=== PATIENT | male | born 1945 | race Caucasian/White ===

== ENCOUNTER 2020-03-07 11:17 | Inpatient (IN) | payer MEDICARE, OTHER ==
[~2020-03-07] VITALS: Ht 170.2 cm; Wt 59.4 kg
--- NOTE | 2020-03-07 11:30 | NUR ---
patient is awake and alert in no distress. suicide precautions inititated. patient belongings at nurses station.
--- NOTE | 2020-03-07 11:47 | NUR ---
MRSA swap collected and sent to lab. EKG done, results given to .
[2020-03-07 12:07] LABS: BASOPHILS % (AUTO) 0.4 % (0.0-2.0); EOSINOPHILS % (AUTO) 0.7 % (0.0-7.0); HEMATOCRIT 43.5 % (36.7-47.1); HEMOGLOBIN 14.6 g/dL (12.5-16.3); LYMPHOCYTES # (AUTO) 0.8 K/uL (20.0-40.0); LYMPHOCYTES % (AUTO) 11.4 % (20.5-51.5); MEAN CORPUSCULAR HEMOGLOBIN 33.7 uug (23.8-33.4); MEAN CORPUSCULAR HGB CONC 34 g/dL (32.5-36.3); MEAN CORPUSCULAR VOLUME 100.5 fL (73.0-96.2); MONOCYTES # (AUTO) 0.6 K/uL (2.0-10.0); MONOCYTES % (AUTO) 8.9 % (0.0-11.0); NEUTROPHILS # (AUTO) 5.2 K/uL (1.8-8.9); NEUTROPHILS % (AUTO) 78.6 % (38.5-71.5); PLATELET COUNT (AUTO) 135 K/uL (152-348); RED BLOOD CELL COUNT(AUTO) 4.33 MIL/uL (4.06-5.63); WHITE BLOOD COUNT (AUTO) 6.7 K/uL (3.6-10.2)
[2020-03-07 12:22] LABS: CARBON DIOXIDE 27 mmol/L (21-32); CHLORIDE 104 mmol/L (98-107); CREATININE 1.1 mg/dL (0.6-1.3); GLUCOSE 104 mg/dL (74-106); POTASSIUM 4.1 mmol/L (3.5-5.1); UREA NITROGEN, BLOOD 19 mg/dL (7-18)
[2020-03-07 12:29] LABS: ALANINE AMINOTRANSFERASE 35 U/L (16-63); ALKALINE PHOSPHATASE 92 U/L (50-136); ASPARTATE AMINOTRANSFERASE 46 U/L (15-37); BILIRUBIN,DIRECT 0.4 mg/dL (0.0-0.2); BILIRUBIN,TOTAL 2.5 mg/dL (0.2-1.0); TOTAL PROTEIN, SERUM 6.9 g/dL (6.4-8.2)
[2020-03-07 12:36] LABS: ETHANOL < 3 MG/DL (0-0)
--- NOTE | 2020-03-07 12:40 | NUR ---
Report given to Andre in [facility]. patient is aware of pending admission.
[2020-03-07 12:45] VITALS: BP 143/99
--- NOTE | 2020-03-07 12:45 | NUR ---
Admitted a 74 yrs old male pt with DX psychosis,patient was place on 5150 for DTS due to he stated that he was going to buy a 280 to shoot himself.During face to face assessment, patient is cooperative with staff,mood is depressed and affect is anxious, poor grooming, unkempt appearance,stated "last drink was last Friday..", "Yes, It is true what the police is saying, but I do not feel suicidal now." low energy level, poor eyes contact, stated "I am [place] , so I have PTSD...", unable to formulate a viable plan for self care.
[2020-03-07] MEDS ORDERED: MAG HYDROX/AL HYDROX/SIMETH 30 ML LIQUID UDC PO PRN (13:15)
[2020-03-07] MEDS ORDERED: ACETAMINOPHEN 325 MG TABLET PO PRN (13:15)
[2020-03-07] MEDS ORDERED: LORAZEPAM 1 MG TABLET PO PRN (13:15)
[2020-03-07] MEDS ORDERED: MAGNESIUM HYDROXIDE 30 ML LIQUID UDC PO PRN (13:15)
[2020-03-07 15:04] VITALS: BP 133/82
[2020-03-07 20:08] VITALS: BP 128/93
--- NOTE | 2020-03-08 00:48 | NUR ---
GPS: RECEIVED PT LYING IN BED, A/OX3. PT IS NEW ADMIT WITH SI IDEATION ON 5150 WITH INTENT TO CAUSE HARM TO SELF. PT WAS INTERVIEWED AND DENIED SI. PT SAID I WAS UNDER THE INFLUENCE OF ALCOHOL THAT IS WHY I SAID THAT. PT WHILE IN ROOM WAS BECOMING IRRITATED DUE TO ROOMMATE YELLING AND SCREAMING. PT REQUESTED ANOTHER ROOM BECAUSE HE FEELS HE WILL NOT REST ENOUGH HERE. ROOM CHANGED AND PT REQUESTED FOR SOMETHING TO HELP HIM RELAX. PRN ATIVAN 1MG GIVEN AND NOTED SOME EFFECT PT AMBULATORY AND STABLE GAIT, SAFETY MEASURES IN PLACE. WILL CONTINUE TO MONITOR PT AND Q/15MINS HEAD CHECK ONGOING.
[2020-03-08 07:30] VITALS: BP 115/85
[2020-03-08 07:55] LABS: BASOPHILS % (AUTO) 0.6 % (0.0-2.0); EOSINOPHILS # (AUTO) 0.1 K/uL (0.0-0.7); EOSINOPHILS % (AUTO) 0.9 % (0.0-7.0); HEMATOCRIT 41.9 % (36.7-47.1); HEMOGLOBIN 14.3 g/dL (12.5-16.3); LYMPHOCYTES # (AUTO) 1.2 K/uL (20.0-40.0); LYMPHOCYTES % (AUTO) 20.2 % (20.5-51.5); MEAN CORPUSCULAR HEMOGLOBIN 34.5 uug (23.8-33.4); MEAN CORPUSCULAR HGB CONC 34 g/dL (32.5-36.3); MONOCYTES # (AUTO) 0.6 K/uL (2.0-10.0); MONOCYTES % (AUTO) 10.2 % (0.0-11.0); NEUTROPHILS # (AUTO) 4.2 K/uL (1.8-8.9); NEUTROPHILS % (AUTO) 68.1 % (38.5-71.5); PLATELET COUNT (AUTO) 144 K/uL (152-348); RED BLOOD CELL COUNT(AUTO) 4.15 MIL/uL (4.06-5.63); WHITE BLOOD COUNT (AUTO) 6.2 K/uL (3.6-10.2)
[2020-03-08 08:16] LABS: THYROID STIMULATING HORMONE 3.204 mIU/mL (0.358-3.740)
[2020-03-08 08:38] LABS: CREATININE 1.2 mg/dL (0.6-1.3); MAGNESIUM 1.8 mg/dL (1.8-2.4); PHOSPHOROUS 3.4 mg/dL (2.5-4.9); POTASSIUM 3.8 mmol/L (3.5-5.1); TOTAL PROTEIN, SERUM 6.8 g/dL (6.4-8.2)
[2020-03-08 09:48] LABS: LYMPHOCYTES % (MANUAL) 16 % (20-40); MONOCYTES % (MANUAL) 4 % (2-10); NEUTROPHILS % (MANUAL) 80 % (42-75)
[2020-03-08] MEDS: NICOTINE 14 MG/24HR PATCH TD SCH (10:02)
[2020-03-08] MEDS: ESCITALOPRAM OXALATE 10 MG TABLET PO SCH (10:02)
--- NOTE | 2020-03-08 11:38 | NUR ---
VIC Family Contact: VIC spoke with patient's niece, Maki Pablo ([phone]) and collected collateral information and discussed discharge and treatment plan. Maki stated that the patient abuses alcohol and gets aggressive with family. Maki stated they are fearful when patient return home due to aggressive behaviors. Maki stated that the patient was living with his sister, Carlee Pablo ([phone]) for over one year, however she stated that he began to drink alcohol for the past two weeks, and they had to "kick him out". Maki stated there is no restraining order towards the patient that he cannot return home. Maki mentioned that Carlee will not stop the patient from returning home upon discharge, however, they would prefer otherwise. Maki also mentioned they spoke with the police who stated that since the pt was residing with the sister for over 1 year, they would need to serve him an official eviction notice should they not want him to return. Addendum: 03/08/20 at 1145 by MARLON ROMERO Maki stated that they would provide Lyft transportation for the patient upon discharge. Maki provide this contract technical writer with the [employer] information the patent was residing at: [facility] [address] [place] [address] ([phone]).
--- NOTE | 2020-03-08 11:38 | NUR ---
VIC Initial Discharge Note: Pt is currently living in a Motel In [place] for the past two weeks, unable to provide information. Prior, patient was living with his sister for over 1 year, [id number] [place] [address] [place] [address] Carlee Pablo ([phone]). Per patient, he would like to be discharged back to a Motel in [place], [place]. VIC will continue to work with patient, family, and MD to ensure a safe and proper discharge plan.
--- NOTE | 2020-03-08 13:17 | NUR ---
Brief Substance Abuse Intervention: Patient was provided with a brief substance abuse intervention and referred to the following substance abuse programs: [facility] ([phone]); [facility] [address] [place] [address] ([phone]); [facility] [address] [facility] [address] ([phone]); [facility] ([phone]); [facility] ([phone]); [facility] ([phone]); [facility] ([phone]).
[2020-03-08 16:00] VITALS: BP 115/79
--- NOTE | 2020-03-08 20:30 | NUR ---
Received patient resting in bed, easily to arouse. No distress noted. Denies any SI/Hallucinations. Stated he is just feeling sluggish because not much to do, but he says he was eating better today. Patient is calm and cooperative.
[2020-03-08] MEDS: ATORVASTATIN 10 MG TABLET PO SCH (20:37)
[2020-03-08 20:41] VITALS: BP 138/84
[2020-03-08] MEDS: TEMAZEPAM 7.5 MG CAPSULE PO PRN (23:25)
[2020-03-09 07:57] VITALS: BP 119/87
[2020-03-09] MEDS: ESCITALOPRAM OXALATE 10 MG TABLET PO SCH (08:49)
[2020-03-09] MEDS: NICOTINE 14 MG/24HR PATCH TD SCH (08:49)
[2020-03-09] MEDS: MULTIVITAMINS,THERAPEUTIC TABLET PO SCH (10:38)
[2020-03-09] MEDS: FOLIC ACID 1 MG TABLET PO SCH (10:39)
[2020-03-09] MEDS: THIAMINE HCL 100 MG TABLET PO SCH (10:48)
[2020-03-09 16:06] VITALS: BP 124/85
[2020-03-09 20:00] VITALS: BP 153/93
--- NOTE | 2020-03-09 20:00 | NUR ---
received patient in his room in bed. he is noted awake A/O x3. able to ambulate with steady gait. he is calm and pleasant upon approached. Pt is a [place] and he suffers from PTSD and loud noises makes him upset. patient is able to verbalized feelings. Mood is low, affect is blunted. Patient denies SI. upon interview, patient stated that he was "drunk" when he verbalized SI; however, he does not feel suicidal. Patient able to CFS. Pt is reassured for his safety. Safety and fall precaution in place. will continue to monitor.
[2020-03-09] MEDS: ATORVASTATIN 10 MG TABLET PO SCH (20:31)
[2020-03-09] MEDS: TEMAZEPAM 7.5 MG CAPSULE PO PRN (22:13)
[2020-03-10 07:30] VITALS: BP 124/87
[2020-03-10] MEDS: THIAMINE HCL 100 MG TABLET PO SCH (08:28)
[2020-03-10] MEDS: MULTIVITAMINS,THERAPEUTIC TABLET PO SCH (08:28)
[2020-03-10] MEDS: ESCITALOPRAM OXALATE 10 MG TABLET PO SCH (08:28)
[2020-03-10] MEDS: FOLIC ACID 1 MG TABLET PO SCH (08:28)
[2020-03-10] MEDS: NICOTINE 14 MG/24HR PATCH TD SCH (08:28)
[2020-03-10] MEDS: NEO/POLYMYX B/DEXAM OPHT DROP 5 ML BOTTLE EACHEYE SCH ×2 (11:33→17:08)
[2020-03-10 15:08] VITALS: BP 112/75
[2020-03-10] MEDS: ATORVASTATIN 10 MG TABLET PO SCH (20:14)
[2020-03-10 20:35] VITALS: BP 112/74
[2020-03-11] MEDS: NEO/POLYMYX B/DEXAM OPHT DROP 5 ML BOTTLE EACHEYE SCH ×5 (00:03→23:26)
[2020-03-11] MEDS: TEMAZEPAM 7.5 MG CAPSULE PO PRN (00:05)
--- NOTE | 2020-03-11 06:52 | NUR ---
PATIENT SLEPT FOR APPROX 5.45 HRS THOUGHT THE NIGHT. HE IS NOTED A/O X 3, HE GETS IRRITABLE AT TIME BUT REDIRECTABLE. PT IS COMPLIANT WITH MEDICATION REGIMENT. WILL CONTINUE TO MONITOR.
[2020-03-11 07:30] VITALS: BP 95/71
[2020-03-11] MEDS: FOLIC ACID 1 MG TABLET PO SCH (08:46)
[2020-03-11] MEDS: ESCITALOPRAM OXALATE 10 MG TABLET PO SCH (08:47)
[2020-03-11] MEDS: MULTIVITAMINS,THERAPEUTIC TABLET PO SCH (08:47)
[2020-03-11] MEDS: NICOTINE 14 MG/24HR PATCH TD SCH (08:48)
[2020-03-11] MEDS: THIAMINE HCL 100 MG TABLET PO SCH (08:48)
[2020-03-11 16:00] VITALS: BP 120/85
[2020-03-11 20:00] VITALS: BP 131/86
[2020-03-11] MEDS: ATORVASTATIN 10 MG TABLET PO SCH (20:19)
--- NOTE | 2020-03-11 23:23 | NUR ---
RECEIVED PATIENT IN BED. APPEARED IRRITABLE. MOOD WAS LOW AND AFFECT WAS BLUNTED.WAS HOWEVER COOPERATIVE WITH STAFF FOR HIS CARE AND MEDICATIONS. DENIES SI.VISUAL CHECKS MADE ON HIM FOR SAFETY. WILL CONTINUE TO MONITOR.
[2020-03-12] MEDS: NEO/POLYMYX B/DEXAM OPHT DROP 5 ML BOTTLE EACHEYE SCH ×4 (06:14→23:38)
--- NOTE | 2020-03-12 06:25 | NUR ---
SLEPT FOR APPROX. 8:30 HOURS. UP THIS MORNING AND HAS TAKEN A SHOWER.
[2020-03-12 07:30] VITALS: BP 129/90
[2020-03-12] MEDS: FOLIC ACID 1 MG TABLET PO SCH (09:20)
[2020-03-12] MEDS: ESCITALOPRAM OXALATE 10 MG TABLET PO SCH (09:20)
[2020-03-12] MEDS: NICOTINE 14 MG/24HR PATCH TD SCH (09:20)
[2020-03-12] MEDS: THIAMINE HCL 100 MG TABLET PO SCH (09:20)
[2020-03-12] MEDS: MULTIVITAMINS,THERAPEUTIC TABLET PO SCH (09:20)
[2020-03-12 15:13] VITALS: BP 120/83
[2020-03-12] MEDS: ATORVASTATIN 10 MG TABLET PO SCH (20:33)
[2020-03-12 21:06] VITALS: BP 121/87
--- NOTE | 2020-03-13 01:27 | NUR ---
RECEIVED PATIENT IN BED. MOOD LOW AND AFFECT WAS BLUNTED.HOWEVER COOPERATIVE WITH STAFF FOR HIS CARE AND MEDICATIONS. DENIES SI.VISUAL CHECKS MADE ON HIM FOR SAFETY. WILL CONTINUE TO MONITOR.
[2020-03-13] MEDS: NEO/POLYMYX B/DEXAM OPHT DROP 5 ML BOTTLE EACHEYE SCH ×4 (06:19→23:08)
--- NOTE | 2020-03-13 06:45 | NUR ---
SLEPT APPROX. 8;15HOURS
[2020-03-13 08:00] VITALS: BP 122/81
[2020-03-13] MEDS: NICOTINE 14 MG/24HR PATCH TD SCH (09:29)
[2020-03-13] MEDS: MULTIVITAMINS,THERAPEUTIC TABLET PO SCH (09:29)
[2020-03-13] MEDS: FOLIC ACID 1 MG TABLET PO SCH (09:29)
[2020-03-13] MEDS: THIAMINE HCL 100 MG TABLET PO SCH (09:29)
[2020-03-13] MEDS: ESCITALOPRAM OXALATE 10 MG TABLET PO SCH (10:29)
--- NOTE | 2020-03-13 15:51 | NUR ---
VIC Individual Therapy Note: VIC met with patient to discuss discharge planning. Patient stated that he wants to be discharged back to his sister's house where he has been living for over [address] [place] [address]. Patient stated that he can take a Taxi to the [address] [place] and from there one take a bus. This telegraphic typewriter operator offered the patient either a Bus Pass.
[2020-03-13 16:30] VITALS: BP 113/80
[2020-03-13] MEDS: ATORVASTATIN 10 MG TABLET PO SCH (20:16)
[2020-03-13 20:42] VITALS: BP 125/80
[2020-03-14] MEDS: NEO/POLYMYX B/DEXAM OPHT DROP 5 ML BOTTLE EACHEYE SCH ×4 (05:47→23:27)
--- NOTE | 2020-03-14 06:01 | NUR ---
GPS; PATIENT SLEPT FOR APPROX 6.30 HRS THOUGHT THE NIGHT. A/O X 3, GETS IRRITABLE AT TIME . COMPLIANT WITH AM MEDICATION . NO AGITATION NOTED. TOOK SHOWERED THIS MORNING. WILL CONTINUE TO MONITOR.
[2020-03-14 07:30] VITALS: BP 125/85
[2020-03-14] MEDS ORDERED: ESCITALOPRAM OXALATE 10 MG TABLET PO SCH (09:00)
[2020-03-14] MEDS: ESCITALOPRAM OXALATE 10 MG TABLET PO SCH (09:36)
[2020-03-14] MEDS: NICOTINE 14 MG/24HR PATCH TD SCH (09:37)
[2020-03-14] MEDS: MULTIVITAMINS,THERAPEUTIC TABLET PO SCH (09:37)
[2020-03-14] MEDS: THIAMINE HCL 100 MG TABLET PO SCH (09:37)
[2020-03-14] MEDS: FOLIC ACID 1 MG TABLET PO SCH (09:37)
[2020-03-14 15:49] VITALS: BP 126/82
--- NOTE | 2020-03-14 18:16 | NUR ---
patient remain calm, no distress, complinat with meds
--- NOTE | 2020-03-14 19:45 | NUR ---
PATIENT STAYED ON THE TV ROOM, REMAINS CALMS AND COOPERATIVE WITH MEDICATIONS AND CARE, CONT TO MONITOR.
[2020-03-14 20:22] VITALS: BP 135/81
[2020-03-14] MEDS: ATORVASTATIN 10 MG TABLET PO SCH (20:24)
[2020-03-15] MEDS: NEO/POLYMYX B/DEXAM OPHT DROP 5 ML BOTTLE EACHEYE SCH ×3 (05:42→17:03)
--- NOTE | 2020-03-15 05:57 | NUR ---
PATIENT SLEPT MOST OF THE NIGHT, NO COMPLAIN OF PAIN. PATIENT CALM ALL NIGHT, CONT TO MONITOR.
[2020-03-15 07:30] VITALS: BP 133/84
[2020-03-15] MEDS: ESCITALOPRAM OXALATE 10 MG TABLET PO SCH (08:20)
[2020-03-15] MEDS: MULTIVITAMINS,THERAPEUTIC TABLET PO SCH (08:20)
[2020-03-15] MEDS: THIAMINE HCL 100 MG TABLET PO SCH (08:20)
[2020-03-15] MEDS: FOLIC ACID 1 MG TABLET PO SCH (08:20)
[2020-03-15] MEDS: NICOTINE 14 MG/24HR PATCH TD SCH (08:21)
[2020-03-15 16:00] VITALS: BP 126/80
[2020-03-15 20:16] VITALS: BP 111/77
[2020-03-15] MEDS: ATORVASTATIN 10 MG TABLET PO SCH (20:36)
[2020-03-16] MEDS: NEO/POLYMYX B/DEXAM OPHT DROP 5 ML BOTTLE EACHEYE SCH ×5 (01:59→23:57)
--- NOTE | 2020-03-16 04:55 | NUR ---
PATIENT ASLEEP BUT EASILY AROUSABLE, PATIENT CALM NO BEHAVIORAL PROBLEM NOTED, CONT TO MONITOR.
[2020-03-16 07:30] VITALS: BP 116/80
[2020-03-16] MEDS: FOLIC ACID 1 MG TABLET PO SCH (09:28)
[2020-03-16] MEDS: THIAMINE HCL 100 MG TABLET PO SCH (09:28)
[2020-03-16] MEDS: MULTIVITAMINS,THERAPEUTIC TABLET PO SCH (09:28)
[2020-03-16] MEDS: ESCITALOPRAM OXALATE 10 MG TABLET PO SCH (09:28)
[2020-03-16] MEDS: NICOTINE 14 MG/24HR PATCH TD SCH (09:28)
--- NOTE | 2020-03-16 14:00 | NUR ---
Group Note: VIC encouraged the pt to attend group therapy on 03/16/20 at 1330 but the pt stated that he wanted to remain in his room as he is aware that he is being discharged the following day. VIC conducted an individual with the pt at 1400 and discussed the pts discharge. Pt stated that he is going to take a taxi to his sister's house and provided the address. SW stated that she will call the family to confirm this discharge plan.
--- NOTE | 2020-03-16 14:10 | NUR ---
Family Contact: SW called the pts sister, Carlee Pablo ([phone]), and left a voicemail stating that the pt is going to be discharged the following day and that the SW would need to discuss the plan.
--- NOTE | 2020-03-16 14:14 | NUR ---
Family Contact: SW spoke with patient's niece, Maki Pablo ([phone]), who stated that the pt cannot return to his sister's house due to the behavior that he exhibited before his admission and due to his drinking, Pts niece recommended that the pt be discharged back to the hotel that he was in prior to his admission.
--- NOTE | 2020-03-16 14:27 | NUR ---
Individual Intervention: SW spoke to the pt in the activities room and informed him that he cannot go back to his sister's home because they do not want him there. Pt stated that he will stop at their house to grab his belongings and then he will go to a hotel in [place]. SW stated that she will assist in finding a hotel.
--- NOTE | 2020-03-16 14:37 | NUR ---
Family Contact: Pt's niece, Maki Pablo ([phone]), called the SW back and stated that they will be at the house when the pt arrives for his belongings to mediate the situation.
[2020-03-16 16:00] VITALS: BP 125/78
[2020-03-16 20:27] VITALS: BP 127/80
[2020-03-16] MEDS: ATORVASTATIN 10 MG TABLET PO SCH (20:56)
[2020-03-17] MEDS: NEO/POLYMYX B/DEXAM OPHT DROP 5 ML BOTTLE EACHEYE SCH (05:35)
--- NOTE | 2020-03-17 06:25 | NUR ---
PT SLEPT 8 HOURS. PT IN NO ACUTE DISTRESS. PRESCRIBED MEDICATION GIVEN AND PT TOLERATED IT WELL. PT COOPERATIVE WITH CARE. PT KNOWS HE WILL BE DISCHARGED TODAY.SAFETY AND COMFORT PROVIDED. ALL NEEDS ARE MET. WILL ENDORSE TO INCOMING NURSE FOR CONTINUITY OF CARE.
[2020-03-17 07:30] VITALS: BP 118/75
[2020-03-17] MEDS: THIAMINE HCL 100 MG TABLET PO SCH (08:25)
[2020-03-17] MEDS: MULTIVITAMINS,THERAPEUTIC TABLET PO SCH (08:25)
[2020-03-17] MEDS: ESCITALOPRAM OXALATE 10 MG TABLET PO SCH (08:25)
[2020-03-17] MEDS: FOLIC ACID 1 MG TABLET PO SCH (08:26)
[2020-03-17] MEDS: NICOTINE 14 MG/24HR PATCH TD SCH (08:26)
--- NOTE | 2020-03-17 09:58 | NUR ---
G[ps/Pilot Supervisor- Patient had been compliant with his routine medications , aware of his discharge plan today. reviewed all medications/prescriptions, diet, safety, skin care ,follow up with his Primary Medical Doctor as recommeded. Safety reviewed and emphasized., patient verbalized understanding.
--- NOTE | 2020-03-17 11:53 | NUR ---
Gps/Store Sales Leader- Spoked to patient;stacy Fisher ). reviewed plan, verbalized understanding. Patient will be going to be discharged to his sister's house, patient to adhere to rules ,given chance.
--- NOTE | 2020-03-17 12:48 | NUR ---
Gps/Plastic Press Operator- Reviewed discharged instructions verbalized understanding. All belongings given back to patient. Emphasized the need to car pick up driver hi prescriptions at [facility] [phone], [place] claimed [place], informed he did'nt come in with the card.. Tried to call Unit taxi- to transport patient to his Sisters' home.
--- NOTE | 2020-03-17 13:35 | NUR ---
Gps/Food Vendor- Discharged to home via taxi, in good spirit, all belongings returned back to patient, no complaints noted.
--- NOTE | 2020-03-17 14:00 | NUR ---
Discharge Note: Pt was discharged to his sisters [place] [address] [place] [address]. Pt called his own taxi with this number ([phone]) at 12:30pm. VIC spoke to the pts niece, Maki Pablo ([phone]), about the discharge and she stated that she and her will be there when the pt arrives to ensure pts safety. Pt stated that he go to a hotel by the end of the night if he does not want to stay at this sister's house. SW provided the pt with homeless resources such as shelters, food storm, hot meals, showers, health clinics, mental health clinics and substance abuse referrals. Upon discharge, the pt appeared to be in a euthymic mood and presented with a calm affect. Pt appeared to be ambulatory with a steady gait. Pt appeared to be well groomed and appeared to be appropriately dressed. Pt denied both suicidal and homicidal ideation as well as auditory and visual hallucinations. Pt will be under the care of psychiatrist, Dr. Barton, located at [address] [place] [address]; and metal furniture assembler, [facility], located at [address] [place] [address]; ; fax: . Pt signed the Homeless Waiver.
== END 2020-03-17 13:40 | disposition home or self-care (01) | DRG 885 ==
LOC: ER 11:17 → GPS 12:33
PROVIDERS: ADMIT Psychiatry & Neurology Psychiatry; ATTEND Internal Medicine
DX: F33.2 Major depressive disorder, recurrent severe without psychotic features (principal); F10.229 Alcohol dependence with intoxication, unspecified; R45.851 Suicidal ideations; F10.239 Alcohol dependence with withdrawal, unspecified; F23 Brief psychotic disorder; Y90.0 Blood alcohol level of less than 20 mg/100 ml; E87.6 Hypokalemia; E78.5 Hyperlipidemia, unspecified; R62.7 Adult failure to thrive; D75.89 Other specified diseases of blood and blood-forming organs; H10.9 Unspecified conjunctivitis; F17.210 Nicotine dependence, cigarettes, uncomplicated; Z68.20 Body mass index [BMI] 20.0-20.9, adult
CPT/HCPCS: 36415; 70030-TC; 83735; 84100; 84443; 85025; 93005; A4663; G0480; J3590